=== PATIENT | male | born 1965 | race Two or more races ===

== ENCOUNTER 2019-01-13 01:18 | Emergency (ER) | payer OTHER ==
[~2019-01-13] VITALS: Ht 157.5 cm; Wt 65.3 kg
[~2019-01-13 01:18] MED LIST: CEFADROXIL500 MG PO; MEDROL4 MG PO; MOTRIN800 MG PO; NEURONTIN600 MG PO; ORPH100T PO
[2019-01-13] MEDS ORDERED: DOLOGESIC 500-1 EACH PO (07:31)
== END 2019-01-13 07:42 | disposition home or self-care (01) ==
LOC: ER 01:18
DX: R68.83 Chills (without fever) (principal); B34.9 Viral infection, unspecified

== ENCOUNTER 2019-07-05 10:02 | Emergency (ER) | payer OTHER ==
[~2019-07-05] VITALS: Ht 172.7 cm; Wt 64.0 kg
[~2019-07-05 10:02] MED LIST changes: +DOLOGESIC 500-1 EACH PO
== END 2019-07-05 16:13 | disposition home or self-care (01) ==
LOC: ER 10:02
DX: B34.9 Viral infection, unspecified (principal)

== ENCOUNTER 2021-12-18 12:10 | Emergency (ER) | payer OTHER ==
[~2021-12-18] VITALS: Ht 167.6 cm; Wt 56.7 kg
== END 2021-12-18 15:49 | disposition home or self-care (01) ==
LOC: ER 12:10
DX: S63.502A Unspecified sprain of left wrist, initial encounter (principal); X58.XXXA Exposure to other specified factors, initial encounter; Y92.099 Unspecified place in other non-institutional residence as the place of occurrence of the external cause